=== PATIENT | female | born 1970 | race Two or more races ===

== ENCOUNTER 2021-05-09 11:29 | Emergency (ER) | payer OTHER, SELFPAY ==
[~2021-05-09] VITALS: Ht 144.8 cm; Wt 66.5 kg
--- NOTE | 2021-05-09 12:43 | NUR ---
PT TO MRI.
--- NOTE | 2021-05-09 13:41 | NUR ---
AWAITING MRI READ.
--- NOTE | 2021-05-09 13:48 | NUR ---
MRI READ BACK, PT FOR RECHECK.
[2021-05-09 15:02] VITALS: BP 121/61
== END 2021-05-09 15:05 | disposition home or self-care (01) ==
LOC: ED 14:50
DX: G51.0 Bell's palsy (principal)
CPT/HCPCS: 70551; 99284